=== PATIENT | male | born 1980 | race Caucasian/White ===

== ENCOUNTER 2022-09-16 08:40 | Outpatient (CLI) | payer OTHER, SELFPAY ==
[2022-09-16 14:31] LABS: Cholesterol* 157 mg/dL (90-199)
[2022-09-16 14:32] LABS: Glucose* 91 mg/dL (60-115); HDL Cholesterol* 57 mg/dL (>=40); LDL Cholesterol Calculated 85 mg/dL (<100); Triglycerides* 76 mg/dL (40-149)
== END 2022-09-16 08:41 | disposition home or self-care (01) ==
PROVIDERS: PCP Emergency Medicine; Visit Provider Emergency Medicine
DX: Z13.1 Encounter for screening for diabetes mellitus (principal); Z13.6 Encounter for screening for cardiovascular disorders
CPT/HCPCS: 80061; 82947

== ENCOUNTER 2023-07-06 23:56 | Emergency (ER) | payer OTHER, SELFPAY ==
[2023-07-07 00:02] VITALS: BP 147/97; PULSE 76; RESP 24; TEMP 37; O2SAT 100; BMI 25.0
[2023-07-07] MEDS: hydrOXYzine pamoate 25 MG CAPSULE 50 MG PO (00:33)
--- NOTE | 2023-07-07 00:35 | ED_ITS ---
HPI - General Adult General Chief complaint: Shortness of Breath/Dyspnea Stated complaint: Shortness of breath- Numb fingers/toes Time Seen by Provider: 07/07/23 00:06 Source: patient and family Mode of arrival: ambulatory Limitations: no limitations History of Present Illness HPI narrative: 42-year-old male presents the emergency department with feelings of difficulty catching his breath and tingling in his fingertips and toes. Symptoms have been escalating over the last couple of days. He has no exertional symptoms, no chest pain. He is an avid workout enthusiast and has no exertional type symptoms. He has no history of asthma or chronic lung disease, he does not smoke. There has been no fever or productive cough. He states that he does not feel anxious despite the fact that he is rocking back and forth, trembling and is fairly restless. He notes no recent injury or trauma. He takes no prescription medications. Denies use of any illicit drugs. No history of DVT or PE. Family history of asthma in his father, sounds as though it is mild and intermittent. No history of anxiety disorder or mental health issues. As far as the tingling in his fingertips and toes, intermittent and is not accompanied by any motor weakness or dysarthria. Past medical history benign per his report. No major long-term health problems. No prescription medications, no allergies. No abnormal social habits. ROS is notable for the subjective shortness of breath as above, otherwise denies times 12 systems. Related Data Home Medications Medication Instructions Recorded Confirmed C4 PO 09/09/22 Previous Rx's Medication Instructions Recorded hydroxyzine pamoate 25 mg capsule 25 mg PO BID PRN panic attack #30 07/07/23 (Vistaril) caps Allergies Allergy/AdvReac Type Severity Reaction Status Date / Time No Known Allergies Allergy Unknown Verified 07/07/23 00:02 [facility] Medical History Encounter for screening and preventative care ?Z00.00 - Encounter for general adult medical examination without abnormal findings (ICD-10) Screening for hyperlipidemia ?Z13.220 - Encounter for screening for lipoid disorders (ICD-10) Screening for diabetes mellitus ?Z13.1 - Encounter for screening for diabetes mellitus (ICD-10) Surgical History History of tonsillectomy ?Z90.89 - Acquired absence of other organs (ICD-10) Social History Smoking Status: Never smoker Do you use any of these nicotine containing products: None How often do you have a drink containing alcohol: 2-3 times a week AUDIT-C Alcohol total score: 3 Non-prescribed substance use: denies use Exam Const: Vital Signs, click to edit/add: Vital Signs - 24 hr 07/07/23 00:02 Temperature 98.6 F Pulse Rate [Pulse Oximeter] 76 Respiratory Rate 24 Blood Pressure [Ri ght Upper Arm] 147/97 H Pulse Oximetry 100 Oxygen Delivery Me thod Room Air Documenting provider has reviewed patient's vital signs: yes Common normals: no apparent distress General appearance: cooperative, well kempt and well developed Other: Seems anxious, restless. Trembling slightly, rocking in the room. HENMT: Common normals: normocephalic and head/scalp atraumatic Head and scalp: normocephalic and atraumatic Face and sinus: normal facial exam Mouth: oral and palatal mucosa normal Eye: Common normals: conjunctivae normal General eye: normal appearance of both eyes Conjunctiva: conjunctiva(e) normal Resp: Common normals: normal respiratory effort, no use of accessory muscles and clear to auscultation bilaterally Effort & inspection: able to speak in complete sentences Auscultation: clear to auscultation bilaterally Cardio: Common normals: regular rate, regular rhythm, S1 normal heart sound, S2 normal heart sound and no murmurs Rate: regular rate Rhythm: regular rhythm Heart sounds: S1 normal and S2 normal Extremity: Common normals: normal to inspection and no pedal edema Psych: Common normals: thought process normal, cooperative and speech normal Appearance: well kempt Speech: normal speech Mood and affect: anxious Thought process: normal thought process Thought content: normal thought content Attention/concentration: attention grossly intact Memory/cognition: memory grossly intact Insight: limited Judgement: judgment good Skin: Common normals: no rashes or lesions noted General skin exam: no rashes or lesions noted Course Course ED Course: Exam is completely reassuring, history is suggestive of anxiety, vital signs are perfectly stable including perfect oxygenation levels. Symptoms are nonexerti onal and I do not recommend further medical workup. Blood work and chest x-ray are not likely to be more revealing and well likely cause more anxiety and reinforce his thought that this is an emergent type of condition. Discussed that I do not recommend further workup here in the emergency room but I do strongly recommend further investigation of the condition through primary care provider and mental health therapist to help him learn new techniques to alleviate the panic. Discussed a trial of Vistaril or lorazepam. He was agreeable to having some Vistaril on hand though I do not think he is likely to continue using it. Alarm symptoms reviewed that would warrant ED presentation. He verbalized understanding and agreement and has no further questions and was understanding of my recommendations for no further workup. He did seem somewhat reassured by exam and explanation of perfectly normal vital signs. Vital Signs Vital signs: Initial Vital Signs Temperature 98.6 F 07/07/23 00:02 Temperature Source Temporal Artery Scan 07/07/23 00:02 Pulse Rate 76 07/07/23 00:02 Pulse Rhythm Regular 07/07/23 00:02 Respiratory Rate 24 07/07/23 00:02 Blood Pressure 147/97 H 07/07/23 00:02 Blood Pressure Mean 113 H 07/07/23 00:02 Pulse Oximetry 100 07/07/23 00:02 Oxygen Delivery Method Room Air 07/07/23 00:02 Vital Signs Temperature 98.6 F 07/07/23 00:02 Pulse Rate 76 07/07/23 00:02 Respiratory Rate 24 07/07/23 00:02 Blood Pressure 147/97 H 07/07/23 00:02 Pulse Oximetry 100 07/07/23 00:02 Oxygen Delivery Method Room Air 07/07/23 00:02 Temperature 98.6 F 07/07/23 00:02 Pulse Rate 76 07/07/23 00:02 Respiratory Rate 24 07/07/23 00:02 Blood Pressure 147/97 H 07/07/23 00:02 Pulse Oximetry 100 07/07/23 00:02 Oxygen Delivery Method Room Air 07/07/23 00:02 Discharge Plan Discharge Clinical Impression: Panic attack Patient Disposition: Home w/ Parent or Adult Condition: Stable Instructions: Panic Attack (ED) Additional Instructions: As we discussed, you are breathing perfectly. Your lungs sound excellent and your oxygen levels are 100%. Your subjective feeling of shortness of breath is not tied to actual difficulty breathing. I do think that this is a manifestation of a panic attack. These are complex physical symptoms that are tied to anxiety but not necessarily consistent with what many perceive anxiety to feel like. I do not recommend blood work or chest x-ray. I do recommend that you make a follow-up appointment to discuss these symptoms with her primary care doctor and that you begin counseling to further explore these symptoms and learn techniques to dispell your panic attacks before they escalate. I have gi janeth you a small supply of a medication called Vistaril, a nonaddictive medicine that is often used for acute anxiety. You may take this up to twice daily. If your symptoms are severe, you may take 2 tablets at the same time. It may cause some drowsiness. This is not meant to be your only treatment. If you have loss of consciousness, are so short of breath that you cannot ambulate, have severe chest pain or racing heart, you should come back to the emergency department for further workup. It is often best to avoid caffeine supplements and energy drinks as well as THC containing compounds as they do often make symptoms worse. Activity Level: No Restrictions Discharge Diet: Regular Prescriptions: New hydroxyzine pamoate [Vistaril] 25 mg capsule 25 mg PO BID PRN (Reason: panic attack) Qty: 30 0RF No Action C4 PO Rx Instructions: Pre-Workout Supplement Follow Up/Referrals: Joselyn Cassidy MD [Primary Care Provider] - Stand Alone Forms: [employer] Info Instructions
== END 2023-07-07 00:50 | disposition home or self-care (01) ==
LOC: ED 07-07 00:43
PROVIDERS: Emergency Provider Family Medicine; PCP Emergency Medicine
DX: F41.0 Panic disorder [episodic paroxysmal anxiety] (principal)
CPT/HCPCS: 99283; A9270

== ENCOUNTER 2025-09-12 09:54 | Outpatient (CLI) | payer OTHER, SELFPAY | END 2025-09-12 09:55 | disposition home or self-care (01) | PROVIDERS: PCP Family Medicine; Visit Provider Family Medicine | DX: Z00.00 Encounter for general adult medical examination without abnormal findings (principal); Z13.6 Encounter for screening for cardiovascular disorders | CPT/HCPCS: 80048; 80061 ==